=== PATIENT | male | born 1940 | race Caucasian/White ===

== ENCOUNTER 2024-09-05 12:44 | Inpatient (IN) | payer OTHER, MEDICAID ==
[~2024-09-05] VITALS: Ht 172.7 cm; Wt 70.5 kg
[~2024-09-05 12:44] MED LIST: FOLI-119 PO; FURO40TA4 PO; HYDR-4902 PO; IBUP1TAB4 PO; KETO2CRE4 TOP; LEVO50TA7 PO; LISI-275 PO; METH2.5T62 PO; POTA-211; POTA-228 PO; SIMV20TA20 PO
--- NOTE | 2024-09-05 13:09 | ED.PDOC ---
Flip. trauma (HPI) HPI Comments 83 y/o M, ROBBY, presents to the ED for CC of back pain. Patient states, he has been experiencing right lower back pain x1week. Patient reports, having a fall [id number] ago resulting in broken ribs on his left side. Patient denies recent fall, injury, or trauma. No other symptoms or modifying factors present at this time. Chief Complaint: Back Pain Time Seen by MD: 13:00 Reviewed notes: Nurses Notes, Sustainability Coordinator Notes, Medications, Allergies Allergies: Coded Allergies: NO KNOWN ALLERGIES (Unverified , 07/15/24) Home Meds Active Scripts Ibuprofen Micronized (Ibuprofen) 400 Mg Tab, 400 MG PO Q8HP PRN for 30 Days, #90 TAB Prov:ROSINA NGUYEN RESIDENT 07/17/24 Hydrocodone-Acetaminophen (Hydrocodone Bitartrate/AC 5-325 mg) 1 Tab Tab, 1 TAB PO Q6HPRN PRN for 5 Days, #20 TAB Prov:CHASITY CASEY MD 07/17/24 Reported Medications Methotrexate (Methotrexate Sodium) 2.5 Mg Tab, TAB PO QWEEKLY 07/15/24 Potassium Chloride (Klor-Con 10) 10 Meq Tab, 1 07/15/24 Folic Acid (Folic Acid) 1 Mg Tab, 1 TAB PO DAILY 07/15/24 Potassium Chloride (Potassium Chloride ER) 10 Meq Tab, 1 TAB PO BID 07/15/24 Simvastatin (Simvastatin) 20 Mg Tab, 1 TAB PO 07/15/24 Furosemide (Furosemide) 40 Mg Tab, 1 TAB PO DAILY 07/15/24 Levothyroxine Sodium (Levothyroxine Sodium) 50 Mcg Tab, 1 TAB PO DAILY 07/15/24 Lisinopril (Lisinopril) 5 Mg Tab, 1 TAB PO DAILY 07/15/24 Ketoconazole (Ketoconazole) 2 % Cre, 1 APPLIC TOP 07/15/24 Information Source: Patient Mode of Arrival: EMS Severity: Moderate Past Medical History PAST MEDICAL HISTORY: Denies Surgical History: Denies all surgeries Family History Family History: Unknown Social History Smoker: Non-Smoker Alcohol: Denies ETOH Use Drugs: Denies Drug Use Lives In: Home Constitutional: denies: chills, diaphoresis, fatigue, fever, malaise, sweats, weakness, others EENTM: denies: blurred vision, double vision, ear bleeding, ear discharge, ear drainage, ear pain, ear ringing, eye pain, eye redness, hearing loss, mouth pain, mouth swelling, nasal discharge, nose bleeding, nose congestion, nose pain, photophobia, tearing, throat pain, throat swelling, voice changes, others Respiratory: denies: cough, hemoptysis, orthopnea, SOB at rest, shortness of breath, SOB with excertion, stridor, wheezing, others Cardiovascular: denies: chest pain, dizzy spells, diaphoresis, Dyspnea on exertion, edema, irregular heart beat, left arm pain, lightheadedness, palpitations, PND, syncope, others Gastrointestinal: denies: abdomen distended, abdominal pain, blood streaked bowels, constipated, diarrhea, dysphagia, difficulty swallowing, hematemesis, me olamide, nausea, poor appetite, poor fluid intake, rectal bleeding, rectal pain, vomiting, others Genitourinary: denies: burning, dysuria, flank pain, frequency, hematuria, incontinence, penile discharge, penile sore, pain, testicle pain, testicle swelling, urgency, others Neurological: denies: dizziness, fainting, headache, left sided numbness, left sided weakness, numbness, paresthesia, pre-existing deficit, right sided numbness, right sided weakness, seizure, speech problems, tingling, tremors, weakness, others Musculoskeletal: reports: back pain; denies: gout, joint pain, joint swelling, muscle pain, muscle stiffness, neck pain, others Integumetry: denies: bruises, change in color, change in hair/nails, dryness, laceration, lesions, lumps, rash, wounds, others Allergic/Immunocompromised: denies: Difficulty Healing, Frequent Infections, Hives, Itching, others Hematologic/Lymphatic: denies: anemia, blood clots, easy bleeding, easy bruising, swollen glands, others Endocrine: denies: excessive hunger, excessive sweating, excessive thirst, excessive urination, flushing, intolerance to cold, intolerance to heat, unexplained weight gain, unexplained weight loss, others Psychiatric: denies: anxiety, bipolar disorder, depression, hopeless, panic disorder, schizophrenia, sleepless, suicidal, others All Other Systems: Reviewed and Negative Physical Exam General Appearance: No Apparent Distress, Normal HEENT: Normal ENT Inspection, Pharynx Normal Neck: Full Range of Motion, Non-Tender, Normal, Normal Inspection Respiratory: Chest Non-Tender, Lungs Clear, No Accessory Muscle Use, No Res piratory Distress, Normal Breath Sounds Cardiovascular: No Edema, No Murmur, No Gallop, Normal Peripheral Pulses, Regular Rate/Rhythm Breast Exam: Deferred Gastrointestinal: No Organomegaly, Non Tender, No Pulsatile Mass, Normal Bowel Sounds, Soft Genitalia: Deferred Pelvic: Deferred Rectal: Deferred Extremities: No calf tenderness, Normal capillary refill, Normal inspection, Normal range of motion, Non-tender, No pedal edema Musculoskeletal : Apperance: Normal Neurologic: Alert, cloth bin packer II-XII nml as Tested, No Motor Deficits, Normal Affect, Normal Mood, No Sensory Deficits Cerebellar Function: Normal Reflexes: Normal Skin: Dry, Normal Color, Warm Lymphatic: No Adenopathy Was a procedure done? Was a procedure done?: No Differential Diagnosis Multiple Trauma: Fractures, Spine Injury X-Ray, Labs, Meds, VS Vital Signs Date Time Temp Pulse Resp B/P (MAP) Pulse Ox O2 Delivery O2 Flow Rate FiO2 09/05/24 14:43 98.6 89 18 124/77 (93) 91 98.6 09/05/24 14:43 89 Room Air* 0 21 09/05/24 12:53 98.6 89 18 124/77 (93) 91 98.6 Lab Test 09/05/24 14:47 Range/Units White Blood Count 5.7 4.4-10.8 10^3/uL Red Blood Count 4.92 4.5-5.90 10^6/uL Hemoglobin 15.5 13.5-17.5 g/dL Hematocrit 46.0 41.0-53.0 % Mean Corpuscular Volume 93.5 80.0-100.0 fL Mean Corpuscular Hemoglobin 31.4 28.0-32.0 pg Mean Corpuscular Hemoglobin Concent 33.6 32.0-36.0 g/dL Red Cell Distribution Width 17.1 H 11.8-14.3 % Platelet Count 221 140-450 10^3/uL Mean Platelet Volume 6.6 L 6.9-10.8 fL Neutrophils (%) (Auto) 77.2 37.0-80.0 % Lymphocytes (%) (Auto) 11.7 10.0-50.0 % Monocytes (%) (Auto) 9.6 0.0-12.0 % Eosinophils (%) (Auto) 0.8 0.0-7.0 % Basophils (%) (Auto) 0.7 0.0-2.0 % Neutrophils # (Auto) 4.4 1.6-8.6 10 ^3/uL Lymphocytes # (Auto) 0.7 0.4-5.4 10 ^3/uL Monocytes # (Auto) 0.5 0-1.3 10 ^3/uL Eosinophils # (Auto) 0 0-0.8 10 ^3/uL Basophils # (Auto) 0 0-0.2 10 ^3/uL Nucleated Red Blood Cells 0.1 % Sodium Level 140 136-145 mmol/L Potassium Level 4.7 3.5-5.1 mmol/L Chloride Level 102 98-107 mmol/L Carbon Dioxide Level 31 20-31 mmol/L Anion Gap 7 5-15 Blood Urea Nitrogen 18 9-23 mg/dL Creatinine 1.16 0.700-1.30 mg/dL Glomerular Filtration Rate Calc 62 >90 mL/min BUN/Creatinine Ratio 15.5 10.0-20.0 Serum Glucose 87 74-106 mg/dL Calcium Level 9.6 8.7-10.4 mg/dL Troponin I High Sensitivity 9 </=54 ng/L Current Medications Medications (Trade) Dose Ordered Sig/Elvia Route Start Time Stop Time Status Last Admin Acetaminophen/ Hydrocodone Bitart ([place] 5/325MG Tab) 1 tab ONCE ONCE PO 09/05/24 14:45 09/05/24 14:46 DC 09/05/24 14:46 [place] [id number] Ph: [phone] DIAGNOSTIC IMAGING Diagnostic Imaging Report : [id number] Signed PATIENT: CHRISTIANO HERNANDEZ ACCT: [id number] UNIT: [id number] : 1940 LOC: ER ROOM / BED: / AGE / SEX: 83 / M ADM STATUS: REG ER SERVICE [id number] ORDERING PHYSICIAN: NATALIA ARIZA MD PROCEDURE(s): CXR2 - CHEST TWO VIEWS ROUTINE REASON: chest wall and back pain ORDER NUMBER(s): [id number], ACCESSION NUMBER(s): [id number] CHEST RADIOGRAPH Indication: chest wall and back pain Technique: Frontal and lateral view of the chest was obtained Comparison: None FINDINGS: Lines and Tubes: None Lungs: Clear Pleura: No effusion. No pneumothorax. Cardiomediastinal contours: Cardiomegaly. Moderate to large hiatal hernia. Bones: Unremarkable IMPRESSION: Cardiomegaly and moderate to large hiatal hernia. ATED BY: JIN ALEXANDER MD DICTATED DATE/TIME: 09/05/241342 SIGNED BY: JIN ALEXANDER MD SIGNED DATE/TIME: 09/05/241342 CC: Time of 1ST Reevaluation: 13:30 Reevaluation 1ST: Unchanged Patient Education/Counseling: Diagnosis, Treatment Family Education/Counseling: No Family Present Departure 1 Departure Time of Disposition: 15:39 (When discussed with the patient about his back pain patent shunt then described that he is now having left-sided chest pain 5/10 radiates into his back it is not exertional in nature.Patient presented with chest pain that was concerning for possible STEMI, ACS, PE, Pneumonia, Muscle Strain, COPD, Dissection. Data: 1. I ordered and reviewed the result of at least 3 labs including a CBC, BMP, and Troponin. 2. I independently interpreted the following tests: EKG which shows sinus arrhythmia and Chest X-ray which shows benign chest.Risk:This patient has a high risk of morbidity due to further diagnostic testing or treatment and may suffer from an acute cardiac or respiratory disorder. Workup reveals concern for ACS and patient should be admitted for further workup and possible expert consultation. ) Impression: Primary Impression: Acute chest pain Additional Impression: Thoracic back pain Qualified Codes: M54.6 - Pain in thoracic spine Disposition: ADMITTED INPATIENT Admit to: Med Surg Condition: Serious Critical Care Note Critical Care Time?: Yes Critical care comment: Acute chest pain Authorized and Performed by: Natalia Ariza MD Total critical care time: Approximately 34 minutes Due to a high probability of clinically significant, life threatening deterioration, the patient required my highest level of preparedness to intervene emergently and I personally spent this critical care time directly and personally managing the patient. This critical care time included obtaining a history; examining the patient; pulse oximetry; ordering and review of studies; arranging urgent treatment with development of a management plan; evaluation of patient's response to treatment; frequent reassessment; and, discussions with other providers. This critical care time was performed to assess and manage the high probability of imminent, life-threatening deterioration that could result in multi-organ failure. It was exclusive of separately billable procedures and treating other patients and teaching time. Please see my other sections and the rest of the note for further information on patient assessment and treatment. Stability Stability form required: No Heart Score Heart Score: Heart Score Response (Comments) Value History N/A 0 EKG N/A 0 Age N/A 0 Risk Factors N/A 0 Troponin N/A 0 Total 0 I personally scribed for NATALIA ARIZA MD ([email or web address]) on 09/05/24 at 13:09. Electronically submitted by Radha Alas ([email or web address]). I personally scribed for NATALIA ARIZA MD ([email or web address]) on 09/05/24 at 13:19. Electronically submitted by Radha Alas ([email or web address]). I personally scribed for NATALIA ARIZA MD ([email or web address]) on 09/05/24 at 14:20. Electronically submitted by Radha Alas ([email or web address]). NATALIA ARIZA MD Sep 05, 2024 13:09
[2024-09-05] MEDS: ACETAMINOPHEN 325 MG TAB PO ONE (13:30)
--- NOTE | 2024-09-05 13:45 | DVH ---
CHEST RADIOGRAPH Indication: chest wall and back pain Technique: Frontal and lateral view of the chest was obtained Comparison: None FINDINGS: Lines and Tubes: None Lungs: Clear Pleura: No effusion. No pneumothorax. Cardiomediastinal contours: Cardiomegaly. Moderate to large hiatal hernia. Bones: Unremarkable IMPRESSION: Cardiomegaly and moderate to large hiatal hernia.
[2024-09-05 14:43] VITALS: PULSE 89
[2024-09-05] MEDS: HYDROcodone-ACET 5/325MG TAB PO ONE (14:46)
[2024-09-05 14:59] LABS: Basophils # (auto) 0 10 ^3/uL (0-0.2); Basophils % (auto) 0.7 % (0.0-2.0); Eosinophils # (auto) 0 10 ^3/uL (0-0.8); Eosinophils % (auto) 0.8 % (0.0-7.0); Hemoglobin 15.5 g/dL (13.5-17.5); Lymphocytes # (auto) 0.7 10 ^3/uL (0.4-5.4); Lymphocytes % (auto) 11.7 % (10.0-50.0); Mean Corpuscular Hemoglobin 31.4 pg (28.0-32.0); Mean Corpuscular Hgb Conc. 33.6 g/dL (32.0-36.0); Mean Corpuscular Volume 93.5 fL (80.0-100.0); Monocytes # (auto) 0.5 10 ^3/uL (0-1.3); Monocytes % (auto) 9.6 % (0.0-12.0); Neutrophils # (auto) 4.4 10 ^3/uL (1.6-8.6); Neutrophils % (auto) 77.2 % (37.0-80.0); Nucleated Red Blood Cells % 0.1 %; Platelet Count (auto) 221 10^3/uL (140-450); Red Blood Cells 4.92 10^6/uL (4.5-5.90); Red Cell Distribution Width 17.1 % (11.8-14.3); White Blood Cell 5.7 10^3/uL (4.4-10.8)
[2024-09-05 15:06] LABS: Chloride 102 mmol/L (98-107); Potassium 4.7 mmol/L (3.5-5.1); Sodium 140 mmol/L (136-145)
[2024-09-05 15:07] LABS: Anion Gap 7 (5-15); Calcium 9.6 mg/dL (8.7-10.4)
[2024-09-05 15:12] LABS: BUN/Creatinine Ratio 15.5 (10.0-20.0); Blood Urea Nitrogen 18 mg/dL (9-23); Glucose 87 mg/dL (74-106)
[2024-09-05 15:15] LABS: Carbon Dioxide 31 mmol/L (20-31)
[2024-09-05 20:59] LABS: Triglycerides 108 mg/dL (< 150)
[2024-09-05 21:00] LABS: LDL Cholesterol 118 mg/dL (< 100)
[2024-09-05 21:01] LABS: Cholesterol 185 mg/dL (< 200); HDL Cholesterol 55 mg/dL (40-59)
--- NOTE | 2024-09-05 21:14 | DVHHPRES ---
History of Present Illness Resident Creating Document: FOREST BARONE History of Present Illness This is a 83-year-old male with past medical history of hypertension, prediabetes, dyslipidemia, hypothyroidism who presented to the ED with chief complaint of right lower back pain. The patient states that the pain started one week ago, started gradually but worsened day by day. The patient states that occasionally the pain radiates toward the right upper quadrant and right- sided chest. The patient described the pain as a sharp/stabbing pain localized in the right lower back just above the right hip rated as 8/10 on the pain scale. The patient denies any radiation to the lower extremities. The patient also reports that the pain gets worse with standing up from the sitting position. The patient denies fever/chills, chest pain, shortness of breath or any other additional symptoms. Upon admission, CBC and BNP were grossly unremarkable, troponins were negative and chest x-ray showed moderate to large hiatal hernia. Upon my examination, the patient reports not being able to walk as he usually do so due to the pain and is currently using a wheelchair. We will order a CT scan of the lumbar spine and we will admit the patient for further assessment and management. Past medical history: Hypertension, prediabetes, dyslipidemia, hypothyroidism Home medications: Alendronate 70 mg one tablet weekly, lisinopril 5 mg daily, methotrexate 2.5 mg seven pills every , furosemide 40 mg daily, levothyroxine 50 mcg daily, simvastatin 20 mg daily, folic acid 1 mg daily, pota ssium 10 mEq b.i.d., terbinafine 250 mg daily. Surgical history: Denies Social history: Denies alcohol, drugs or smoking Cardiovascular: HTN, hyperipidemia Musculoskeletal: Osteoarthritis Endocrine: Hypothyroidism, Other (Prediabetes) Past Surgical History: None Family History: None Smoke: No ALCOHOL: none Drugs: None Lives: with Family Domestic Violence: Neg Review of Systems Constitutional: No: Fever, Chills, Sweats, Weakness, Malaise, Other Eyes: No: Pain, Vision change, Conjunctivae inflammation, Eyelid inflammation, Other, Redness ENT: No: Ear pain, Ear discharge, Nose pain, Nose discharge, Nose congestion, Mouth pain, Mouth swelling, Throat pain, Throat swelling, Other Respiratory: No: Cough, Dry, Shortness of breath, SOB with excertion, Wheezing, Hemoptysis, Pleuritic Pain, Sputum, Wheezing, Other Cardiovascular: No: Chest Pain, Palpitations, Orthopnea, Paroxysmal Noc. Dyspnea, Edema, Lt Headedness, Other Gastrointestinal: No: Nausea, Vomiting, Abdominal Pain, Diarrhea, Constipation, Melena, Hematochezia, Other Genitourinary: No Dysuria, No Frequency, No Incontinence, No Hematuria, No Retention, No Other Musculoskeletal: back pain; No: other, neck pain, shoulder pain, arm pain, hand pain, leg pain, foot pain Skin: No: Rash, Lesions, Jaundice, Bruising, Other Neurological: Other (Inability to walk due to severe right-sided lower back pain); No: Weakness, Numbness, Incoordination, Change in speech, Confusion, Seizures Allergies: Coded Allergies: NO KNOWN ALLERGIES (Unverified , 07/15/24) Exam Vital Signs Vital Signs Date Time Temp Pulse Resp B/P (MAP) Pulse Ox O2 Delivery O2 Flow Rate FiO2 09/05/24 19:44 98.2 80 18 158/94 (115) 90 98.2 09/05/24 14:43 Room Air* 0 21 General Appearance: Alert, Oriented X3, Cooperative, mild distress HEENT: Atraumatic, PERRLA, EOMI, Mucous membr. moist/pink Respiratory: Clear to auscultation, Normal air movement Cardiovascular: Regular rate, Normal S1, Normal S2, No murmurs Abdominal: Normal bowel sounds, Soft, No tenderness, No hepatospenomegaly, No masses Extremities: No clubbing, No cyanosis, No edema, Normal pulses, No tenderness/swelling Skin: No rashes, No breakdown, No significant lesion Neuro: Normal speech, Strength at 5/5 X4 ext, Normal tone, Sensation intact, Cranial nerves 3-12 NL, Reflexes 2+, Other (Patient currently walking with a lot of difficulty due to severe right-sided lower back pain.) Psych/Mental Status: Mental status NL, Mood NL Labs/Xrays Labs Test 09/05/24 18:26 09/05/24 14:47 Range/Units Troponin I High Sensitivity 10 </=54 ng/L White Blood Count 5.7 4.4-10.8 10^3/uL Red Blood Count 4.92 4.5-5.90 10^6/uL Hemoglobin 15.5 13.5-17.5 g/dL Hematocrit 46.0 41.0-53.0 % Mean Corpuscular Volume 93.5 80.0-100.0 fL Mean Corpuscular Hemoglobin 31.4 28.0-32.0 pg Mean Corpuscular Hemoglobin Concent 33.6 32.0-36.0 g/dL Red Cell Distribution Width 17.1 H 11.8-14.3 % Platelet Count 221 140-450 10^3/uL Mean Platelet Volume 6.6 L 6.9-10.8 fL Neutrophils (%) (Auto) 77.2 37.0-80.0 % Lymphocytes (%) (Auto) 11.7 10.0-50.0 % Monocytes (%) (Auto) 9.6 0.0-12.0 % Eosinophils (%) (Auto) 0.8 0.0-7.0 % Basophils (%) (Auto) 0.7 0.0-2.0 % Neutrophils # (Auto) 4.4 1.6-8.6 10 ^3/uL Lymphocytes # (Auto) 0.7 0.4-5.4 10 ^3/uL Monocytes # (Auto) 0.5 0-1.3 10 ^3/uL Eosinophils # (Auto) 0 0-0.8 10 ^3/uL Basophils # (Auto) 0 0-0.2 10 ^3/uL Nucleated Red Blood Cells 0.1 % Sodium Level 140 136-145 mmol/L Potassium Level 4.7 3.5-5.1 mmol/L Chloride Level 102 98-107 mmol/L Carbon Dioxide Level 31 20-31 mmol/L Anion Gap 7 5-15 Blood Urea Nitrogen 18 9-23 mg/dL Creatinine 1.16 0.700-1.30 mg/dL Glomerular Filtration Rate Calc 62 >90 mL/min BUN/Creatinine Ratio 15.5 10.0-20.0 Serum Glucose 87 74-106 mg/dL Calcium Level 9.6 8.7-10.4 mg/dL Assessment/Plan Assessment/Plan Assessment/plan Acute right-sided lower back pain, R/O radiculopathy. likely Musculoskeletal R/O Herniated disk R/O Vertebral compression fractures -straight leg raise test negative -chest x-ray grossly unremarkable regarding lung parenchyma, there is a moderate hiatal hernia -Order CT lumbar spine to r/o vertebral fractures or herniated disk (unlikely) -Start IV fluids NS 0.9% at 60cc/hr -Start cyclobenzaprine 10mg daily -Gave ketorolac and acetaminophen for lower back pain Hypothyroidism -order TSH and free T4 -Resume levothyroxine 50 mcg daily Primary hypertension -Start lisinopril 5 mg daily -Monitor BP Prediabetes -Ordered HbA1c -Monitor BG Dyslipidemia -Ordered lipid panel -Start atorvastatin 20mg daily Hx of osteopenia/osteoporosis -Alendronate 70mg 1 tab weekly Goals of care discussed with the patient at bedside for >35min, FULL CODE Plan discussed with Dr. Pritchett Plan discussed with: Patient My Orders Orders - FOREST BARONE Procedure Category Date Status Time Admit ADMIT 09/05/24 Transmitted 20:31 Code Status CODE 09/05/24 Transmitted 20:31 Vital Signs [facility] 09/05/24 In Process 20:31 Review Orders With ARI 09/05/24 In Process Adm. 20:31 Encourage Activity As ARI 09/05/24 In Process Tolerate 20:31 Regular Diet DIET 09/06/24 Transmitted Breakfast Sodium Chloride 0.9% PHA 09/05/24 Logged 20:45 Acetaminophen Tablet PHA 09/05/24 Logged (Tylenol Tablet) 20:45 Notify Of Changes [facility] 09/05/24 In Process From Base 20:31 Advance Directive [facility] 09/05/24 In Process 20:31 Urinalysis LAB 09/05/24 Logged 20:31 Lipid Panel LAB 09/05/24 Logged 20:31 Patient Condition ORDERS 09/05/24 Transmitted 20:31 Allergies [facility] 09/05/24 In Process 20:31 Hydrocodone-Acet PHA 09/05/24 Logged 5/325mg Tab ([place] 20:45 Drug Screen LAB 09/05/24 Logged 20:31 Hemoglobin A1c LAB 09/05/24 Logged 20:31 Enoxaparin Sodium PHA 09/06/24 Logged (Lovenox) 10:00 Comprehensive LAB 09/06/24 Verified Metabolic Panel 04:00 Ls Spine Wo Contrast CT 09/05/24 Logged 20:37 Cyclobenzaprine PHA 09/05/24 Verified Tablet (Flexeril 20:45 Ketorolac Injection PHA 09/05/24 Verified (Toradol Injection) 20:45 Acetaminophen Tablet PHA 09/05/24 Verified (Tylenol Tablet) 20:45 Date of Service: Sep 05, 2024 Billing Provider: SAMY PRITCHETT MD Common Visit Codes: 90504-IWZGPRG INP/OBS CARE (HIGH) Secondary Visit Codes: 69215-GYQPVGMF CARE PLAN 30 MINUTES JAMEEL BrownFOREST RESIDENT Sep 05, 2024 21:14
--- NOTE | 2024-09-05 22:20 | DVH ---
CT LS SPINE WO CONTRAST Indication: R/O Herniated disk or vertebral fracture EXAM DATE: 09/05/2024 08:44 PM COMPARISON: None TECHNIQUE: CT of the lumbar spine without intravenous contrast. RADIATION DOSE: CTDIvol: 22.53 mGy, DLP: 682.16 mGy*cm FINDINGS: The lumbar vertebral body heights are maintained. Severe multilevel disc space narrowing. 2 mm retro listhesis of L2 upon L3.2 mm retrolisthesis of L1 upon L2. Moderate to severe lumbar facet hypertroph ic changes. Transitional L6 vertebral body. Old sacral fracture deformity at approximately S3. Lumba r dextrocurvature. Moderate to severe neural foraminal stenosis L5-S1. Moderate to severe neural foraminal stenosis L2-3 . Moderate neural foraminal stenosis of the remaining lumbar levels. Moderate bilateral sacroiliac degenerative joint disease. Aneurysmal dilatation of the infrarenal abdominal aorta to 4.2 3.8 cm. Aneurysmal dilatation of the p roximal abdominal aorta to 3.5 x 3.0 cm. IMPRESSION: 1. Severe multilevel disc degenerative disc disease, L1-L3 retrolisthesis, facet hypertrophy, L6 reaves sitional vertebra 2. Multilevel neural foraminal stenosis most pronounced at L2-3, L5-S1. 3. Abdominal aortic aneurysm ( 4.2 x 3.8 cm infrarenal, 3.5 x 3.0 cm proximal ) .
[2024-09-05 22:35] LABS: Erythrocyte Sedimentation Rate 9 mm/hr (0-20)
[2024-09-06] VITALS (8 sets, daily range): BP systolic 99–141; BP diastolic 59–90; PULSE 61–89; RESP 12–19; TEMP 97.2–98.4; O2SAT 71–91
[2024-09-06] MEDS: SODIUM CHLORIDE 0.9% 1,000 ML IV SCH (00:45)
[2024-09-06] MEDS: KETOROLAC TROMETH 30 MG/ML 1ML VIAL IV ONE (00:45)
[2024-09-06] MEDS: CYCLOBENZAPRINE HCL 10 MG TAB PO ONE (00:45)
[2024-09-06] MEDS: ACETAMINOPHEN 325 MG TAB PO ONE (00:45)
[2024-09-06] MEDS ORDERED: ACETAMINOPHEN 325 MG TAB PO PRN (02:45)
[2024-09-06] MEDS: HYDROcodone-ACET 5/325MG TAB PO PRN (03:17)
[2024-09-06 03:54] LABS: COVID19 ANTIGEN SOFIA FIA NEGATIVE (NEGATIVE); Rapid Influenza A Negative (Negative); Rapid Influenza B Negative (Negative)
[2024-09-06] MEDS ORDERED: ALEN70TA74 PO (05:50)
[2024-09-06] MEDS ORDERED: TERB250T92 PO (05:51)
[2024-09-06] MEDS: LEVOTHYROXINE SODIUM 50 MCG TAB PO SCH (05:52)
[2024-09-06 07:12] LABS: Alanine Aminotransferase 17 U/L (7-40); Albumin 4.3 g/dL (3.2-4.8); Alkaline Phosphatase 59 U/L (46-116); Anion Gap 7 (5-15); Aspartate Aminotransferase 20 U/L (13-40); BUN/Creatinine Ratio 18.1 (10.0-20.0); Blood Urea Nitrogen 19 mg/dL (9-23); Calcium 9.6 mg/dL (8.7-10.4); Carbon Dioxide 30 mmol/L (20-31); Chloride 101 mmol/L (98-107); Glucose 89 mg/dL (74-106); Sodium 138 mmol/L (136-145); Total Protein 6.7 g/dL (5.7-8.2)
[2024-09-06 07:13] LABS: Bilirubin, Total 0.5 mg/dL (0.2-1.0)
[2024-09-06] MEDS: LISINOPRIL 5 MG TAB PO SCH (08:50)
[2024-09-06] MEDS: ENOXAPARIN SOD 40 MG/0.4 ML SYRINGE SC SCH (10:46)
[2024-09-06] MEDS: LORazepam 2MG/ML-1ML VIAL IV ONE (11:10)
[2024-09-06] MEDS ORDERED: LORazepam 2MG/ML-1ML VIAL IV PRN (14:15)
[2024-09-06] MEDS: LORazepam 2MG/ML-1ML VIAL IV PRN (15:40)
--- NOTE | 2024-09-06 15:43 | DVHPNRES ---
Progress Note Date Seen: Sep 06, 2024 Resident Creating Document: SELENA MENSAH RESIDENT Has the PT tested + for MRSA If YES, has PT been informed?: No Medical Necessity Reason Pt with a Central, PICC or Fol: No Subjective Review of Systems This is a 83-year-old male with past medical history of rheumatoid arthritis, hypertension, prediabetes, dyslipidemia, hypothyroidism who presented to the ED with chief complaint of right lower back pain. The patient states that the pain started one week ago, started gradually but worsened day by day. The patient states that occasionally the pain radiates toward the right upper quadrant and right-sided chest. The patient described the pain as a sharp/stabbing pain localized in the right lower back just above the right hip rated as 8/10 on the pain scale. The patient denies any radiation to the lower extremities. The patient also reports that the pain gets worse with standing up from the sitting position. The patient denies fever/chills, chest pain, shortness of breath or any other additional symptoms. Upon admission, CBC and BNP were grossly unremarkable, troponins were negative and chest x-ray showed moderate to large hiatal hernia. Upon my examination, the patient reports not being able to walk as he usually do so due to the pain and is currently using a wheelchair. We will order a CT scan of the lumbar spine and we will admit the patient for further assessment and management. Past medical history: rheumatoid arthritis, Hypertension, prediabetes, dyslipidemia, hypothyroidism Home medications: Alendronate 70 mg one tablet weekly, lisinopril 5 mg daily, methotrexate 2.5 mg seven pills every , furosemide 40 mg daily, levothyroxine 50 mcg daily, simvastatin 20 mg daily, folic acid 1 mg daily, potassium 10 mEq b.i.d., terbinafine 250 mg daily. Surgical history: Denies Social history: Denies alcohol, drugs or smoking Cardiovascular: HTN, hyperipidemia Musculoskeletal: Osteoarthritis Endocrine: Hypothyroidism, Other (Prediabetes) Past Surgical History: None Family History: None Smoke: No ALCOHOL: none Drugs: None Lives: with Family Domestic Violence: Neg 09/06/2024: CT scan showed: Severe multilevel disc degenerative disc disease, L1- L3 retrolisthesis, facet hypertrophy, L6 transitional vertebra, Multilevel neural foraminal stenosis most pronounced at L2-3, L5-S1. Abdominal aortic aneurysm, pain is exquisite paravertebral, no fever, no leukocytosis, lorazepam, flexeril, ibuprofen and norco given for pain. Objective vital signs Vital Sign Date Time Temp Pulse Resp B/P (MAP) Pulse Ox O2 Delivery O2 Flow Rate FiO2 09/06/24 09:00 97.6 89 19 138/90 (106) 90 97.6 09/06/24 08:00 Room Air* 0 21 Total Intake and Output 09/05/24 09/05/24 09/06/24 15:00 23:00 07:00 Intake Total 0 ml Balance 0 ml medications Current Medications Medications Dose Ordered Sig/Elvia Route Start Time Stop Time Status Last Admin Dose Admin Sodium Chloride 1,000 ml @ 60 mls/hr [id number] IV 09/05/24 20:45 09/06/24 09:13 60 MLS/HR Acetaminophen 650 mg Q6HP PRN PO 09/06/24 02:45 Acetaminophen/ Hydrocodone Bitart 1 tab Q4HP PRN PO 09/05/24 20:45 09/06/24 08:54 1 TAB Enoxaparin Sodium 40 mg DAILY SC 09/06/24 10:00 09/06/24 10:46 40 MG Levothyroxine Sodium 50 mcg DAILY@0600 PO 09/06/24 06:00 09/06/24 05:52 50 MCG Lisinopril 5 mg DAILY@0800 PO 09/06/24 08:00 09/06/24 08:50 5 MG Atorvastatin Calcium 20 mg HS PO 09/06/24 22:00 Methotrexate 17.5 mg QWEEKLY PO 09/07/24 12:00 Patient Own Medication 1 QWEEKLY PO 09/05/24 21:15 Lorazepam 0.5 mg Q6HP PRN IV 09/06/24 14:30 UNV Examination General Appearance: Alert, Oriented X3, Cooperative, mild distress HEENT: Atraumatic, PERRLA, EOMI, Mucous membr. moist/pink Respiratory: Clear to auscultation, Normal air movement Cardiovascular: Regular rate, Normal S1, Normal S2, No murmurs Abdominal: Normal bowel sounds, Soft, No tenderness, No hepatospenomegaly, No masses Extremities: No clubbing, No cyanosis, No edema, Normal pulses, No tenderness/swelling Skin: No rashes, No breakdown, No significant lesion Neuro: Normal speech, Strength at 5/5 X4 ext, Normal tone, Sensation intact, Cranial nerves 3-12 NL, Reflexes 2+, Other (Patient currently walking with a lot of difficulty due to severe right-sided lower back pain.) Psych/Mental Status: Mental status NL, Mood NL laboratory and microbiology Laboratory Tests 09/06/24 06:33 09/05/24 14:47 Test 09/06/24 06:33 Range/Units Serum Glucose 89 74-106 mg/dL Problem List/Assessment/Plan Problem List/Assessment/Plan #Acute right-sided lower back pain due to radiculopathy and musculoskeletal #Severe multilevel disc degenerative disc disease, L1-L3 retrolisthesis, facet hypertrophy, L6 transitional vertebra #Multilevel neural foraminal stenosis most pronounced at L2-3, L5-S1. #Rheumatoid arthritis -straight leg raise test negative -chest x-ray grossly unremarkable regarding lung parenchyma, there is a moderate hiatal hernia -CT lumbar done Ativan PO given Continue cyclobenzaprine 10mg daily Start ibuprofen CRP pending #Hypothyroidism -TSH and free T4: normal -Resume levothyroxine 50 mcg daily #Primary hypertension -Continue lisinopril 5 mg daily -Monitor BP #Prediabetes - HbA1c 5.7 -Monitor BG #Dyslipidemia -Ordered lipid panel -Start atorvastatin 20mg daily #Hx of osteopenia/osteoporosis -Alendronate 70mg 1 tab weekly #Abdominal aortic aneurysm: 4.2 x 3.8 cm infrarenal, 3.5 x 3.0 cm proximal fu outpatient Goals of care discussed with the patient at bedside for >35min, FULL CODE Plan discussed with Dr. Casey Plan discussed with: Patient, Other My Orders My Orders Orders - SELENA MENSAH RESIDENT Procedure Category Date Status Time Lorazepam 2mg/Ml Inj PHA 09/06/24 Logged (Ativan Inj) 14:30 Lorazepam Tablet PHA 09/06/24 Transmitted (Ativan Tablet) 15:45 Date of Service: Sep 06, 2024 Billing Provider: CHASITY CASEY MD Common Visit Codes: [id number] INP/OBS CARE(HIGH) SELENA MENSAH RESIDENT Sep 06, 2024 15:43 CHASITY CASEY MD Sep 07, 2024 11:53
[2024-09-06] MEDS: LORazepam 0.5 MG TAB PO ONE (16:04)
[2024-09-06] MEDS: FOLIC ACID 1 MG TAB PO SCH (16:33)
[2024-09-06] MEDS: ATORVASTATIN 20 MG TAB PO SCH (21:05)
[2024-09-06] MEDS: IBUPROFEN 400 MG TAB PO PRN (21:05)
[2024-09-06 22:08] LABS: Urine Bacteria None Seen /hpf (None Seen)
[2024-09-06 22:38] LABS: Cannabinoid Screen, Urine Pos (NEGATIVE); Opiate Scree,Urine Neg (NEGATIVE)
[2024-09-06 22:46] LABS: Amphetamine Screen, Urine Neg (NEGATIVE); Barbiturate Scree,Urine Neg (NEGATIVE); Benzodiazephine Screen, Urine Neg (NEGATIVE); Cocaine Screen, Urine Neg (NEGATIVE); Phencyclidine Screen, Urine Neg (NEGATIVE)
[2024-09-06 22:57] LABS: Urine Blood Negative /uL (Negative); Urine Clarity Clear (Clear); Urine Color Yellow (Yellow); Urine Hyaline Cast FEW /lpf (0 - 2); Urine Protein, UAD Negative (Negative); Urine Specific Gravity 1.016 (1.001-1.035); Urine Squamous Epithelial Cell None Seen /hpf (<5); Urine Urobilinogen Normal (Negative); Urine WBC 1 /HPF (0-3); Urine pH 5.5 (5.0-9.0)
[2024-09-07] VITALS (8 sets, daily range): BP systolic 102–149; BP diastolic 51–83; PULSE 52–70; RESP 12–18; TEMP 97.3–98.8; O2SAT 90–95
[2024-09-07 05:29] LABS: Basophils # (auto) 0 10 ^3/uL (0-0.2); Chloride 103 mmol/L (98-107); Eosinophils # (auto) 0.1 10 ^3/uL (0-0.8); Eosinophils % (auto) 3.3 % (0.0-7.0); Hematocrit 38.5 % (41.0-53.0); Hemoglobin 12.9 g/dL (13.5-17.5); Lymphocytes # (auto) 0.9 10 ^3/uL (0.4-5.4); Lymphocytes % (auto) 20.9 % (10.0-50.0); Mean Corpuscular Hemoglobin 31.3 pg (28.0-32.0); Mean Corpuscular Hgb Conc. 33.4 g/dL (32.0-36.0); Mean Corpuscular Volume 93.7 fL (80.0-100.0); Monocytes # (auto) 0.6 10 ^3/uL (0-1.3); Monocytes % (auto) 14.7 % (0.0-12.0); Neutrophils # (auto) 2.5 10 ^3/uL (1.6-8.6); Neutrophils % (auto) 60.1 % (37.0-80.0); Nucleated Red Blood Cells % 0.1 %; Platelet Count (auto) 180 10^3/uL (140-450); Potassium 4.3 mmol/L (3.5-5.1); Red Blood Cells 4.11 10^6/uL (4.5-5.90); Red Cell Distribution Width 17.3 % (11.8-14.3); Sodium 136 mmol/L (136-145); White Blood Cell 4.2 10^3/uL (4.4-10.8)
[2024-09-07 05:30] LABS: Anion Gap 5 (5-15); Carbon Dioxide 28 mmol/L (20-31)
[2024-09-07 05:35] LABS: BUN/Creatinine Ratio 21.7 (10.0-20.0); Blood Urea Nitrogen 18 mg/dL (9-23); Glucose 83 mg/dL (74-106)
[2024-09-07 05:52] LABS: Calcium 8.3 mg/dL (8.7-10.4)
[2024-09-07] MEDS: KETOROLAC TROMETH 30 MG/ML 1ML VIAL IV PRN (12:15)
[2024-09-07] MEDS: METHOTREXATE 2.5 MG TAB PO SCH (12:49)
--- NOTE | 2024-09-07 17:51 | DVHPNRES ---
Progress Note Date Seen: Sep 07, 2024 Resident Creating Document: SELENA MENSAH RESIDENT Has the PT tested + for MRSA If YES, has PT been informed?: No Medical Necessity Reason Pt with a Central, PICC or Fol: No Subjective Review of Systems This is a 83-year-old male with past medical history of rheumatoid arthritis, hypertension, prediabetes, dyslipidemia, hypothyroidism who presented to the ED with chief complaint of right lower back pain. The patient states that the pain started one week ago, started gradually but worsened day by day. The patient states that occasionally the pain radiates toward the right upper quadrant and right-sided chest. The patient described the pain as a sharp/stabbing pain localized in the right lower back just above the right hip rated as 8/10 on the pain scale. The patient denies any radiation to the lower extremities. The patient also reports that the pain gets worse with standing up from the sitting position. The patient denies fever/chills, chest pain, shortness of breath or any other additional symptoms. Upon admission, CBC and BNP were grossly unremarkable, troponins were negative and chest x-ray showed moderate to large hiatal hernia. Upon my examination, the patient reports not being able to walk as he usually do so due to the pain and is currently using a wheelchair. We will order a CT scan of the lumbar spine and we will admit the patient for further assessment and management. Past medical history: rheumatoid arthritis, Hypertension, prediabetes, dyslipidemia, hypothyroidism Home medications: Alendronate 70 mg one tablet weekly, lisinopril 5 mg daily, methotrexate 2.5 mg seven pills every , furosemide 40 mg daily, levothyroxine 50 mcg daily, simvastatin 20 mg daily, folic acid 1 mg daily, potassium 10 mEq b.i.d., terbinafine 250 mg daily. Surgical history: Denies Social history: Denies alcohol, drugs or smoking Cardiovascular: HTN, hyperipidemia Musculoskeletal: Osteoarthritis Endocrine: Hypothyroidism, Other (Prediabetes) Past Surgical History: None Family History: None Smoke: No ALCOHOL: none Drugs: None Lives: with Family Domestic Violence: Neg 09/06/2024: CT scan showed: Severe multilevel disc degenerative disc disease, L1- L3 retrolisthesis, facet hypertrophy, L6 transitional vertebra, Multilevel neural foraminal stenosis most pronounced at L2-3, L5-S1. Abdominal aortic aneurysm, pain is exquisite paravertebral, no fever, no leukocytosis, lorazepam, flexeril, ibuprofen and norco given for pain. 09/07/2024: patient still uncontrolled, ketorolac added to the regimen Objective vital signs Vital Sign Date Time Temp Pulse Resp B/P (MAP) Pulse Ox O2 Delivery O2 Flow Rate FiO2 09/07/24 17:00 98.8 62 16 105/51 (69) 90 98.8 09/07/24 08:00 Room Air* 0 21 Total Intake and Output 09/06/24 09/06/24 09/07/24 15:00 23:00 07:00 Intake Total 500 ml 100 ml Output Total 350 ml 150 ml Balance 150 ml -50 ml medications Current Medications Medications Dose Ordered Sig/Elvia Route Start Time Stop Time Status Last Admin Dose Admin Acetaminophen 650 mg Q6HP PRN PO 09/06/24 02:45 Enoxaparin Sodium 40 mg DAILY SC 09/06/24 10:00 09/07/24 10:07 40 MG Levothyroxine Sodium 50 mcg DAILY@0600 PO 09/06/24 06:00 09/07/24 05:31 50 MCG Lisinopril 5 mg DAILY@0800 PO 09/06/24 08:00 09/07/24 08:22 5 MG Atorvastatin Calcium 20 mg HS PO 09/06/24 22:00 09/06/24 21:05 20 MG Methotrexate 17.5 mg QWEEKLY PO 09/07/24 12:00 09/07/24 12:49 17.5 MG Patient Own Medication 1 QWEEKLY PO 09/05/24 21:15 Folic Acid 1 mg DAILY PO 09/06/24 16:03 09/07/24 10:07 1 MG Ketorolac Tromethamine 15 mg Q6HPRN PRN IV 09/07/24 12:00 09/12/24 11:59 09/07/24 12:15 15 MG Examination General Appearance: Alert, Oriented X3, Cooperative, mild distress HEENT: Atraumatic, PERRLA, EOMI, Mucous membr. moist/pink Respiratory: Clear to auscultation, Normal air movement Cardiovascular: Regular rate, Normal S1, Normal S2, No murmurs Abdominal: Normal bowel sounds, Soft, No tenderness, No hepatospenomegaly, No masses Extremities: No clubbing, No cyanosis, No edema, Normal pulses, No tenderness/swelling Skin: No rashes, No breakdown, No significant lesion Neuro: Normal speech, Strength at 5/5 X4 ext, Normal tone, Sensation intact, Cranial nerves 3-12 NL, Reflexes 2+, Other (Patient currently walking with a lot of difficulty due to severe right-sided lower back pain.) Psych/Mental Status: Mental status NL, Mood NL laboratory and microbiology Laboratory Tests 09/07/24 04:57 Test 09/07/24 04:57 Range/Units Serum Glucose 83 74-106 mg/dL Problem List/Assessment/Plan Problem List/Assessment/Plan #Acute right-sided lower back pain due to radiculopathy and musculoskeletal #Severe multilevel disc degenerative disc disease, L1-L3 retrolisthesis, facet hypertrophy, L6 transitional vertebra #Multilevel neural foraminal stenosis most pronounced at L2-3, L5-S1. #Rheumatoid arthritis -straight leg raise test negative -chest x-ray grossly unremarkable regarding lung parenchyma, there is a moderate hiatal hernia -CT lumbar done Ativan PO given Continue cyclobenzaprine 10mg daily Start ketoroplac CRP mildly elevated #Hypothyroidism -TSH and free T4: normal -Resume levothyroxine 50 mcg daily #Primary hypertension -Continue lisinopril 5 mg daily -Monitor BP #Prediabetes - HbA1c 5.7 -Monitor BG #Dyslipidemia -Ordered lipid panel -Start atorvastatin 20mg daily #Hx of osteopenia/osteoporosis -Alendronate 70mg 1 tab weekly #Abdominal aortic aneurysm: 4.2 x 3.8 cm infrarenal, 3.5 x 3.0 cm proximal fu outpatient Goals of care discussed with the patient at bedside for >35min, FULL CODE Plan discussed with Dr. Shipman Plan discussed with: Patient, Other (rn) My Orders My Orders Orders - SELENA MENSAH Procedure Category Date Status Time Ketorolac Injection PHA 09/07/24 In Process (Toradol Injection) 12:00 SELENA MENSAH RESIDENT Sep 07, 2024 17:51
[2024-09-08 01:00] VITALS: BP 109/57; PULSE 62; RESP 18; TEMP 97.9; O2SAT 91
[2024-09-08 05:00] VITALS: BP 141/75; PULSE 62; RESP 20; TEMP 97.6; O2SAT 96
[2024-09-08 09:18] VITALS: BP 115/62; PULSE 67; RESP 16; TEMP 97.3; O2SAT 93
[2024-09-08] MEDS ORDERED: ACET-1079 PO (10:49)
[2024-09-08] MEDS ORDERED: IBU600T PO (10:49)
[2024-09-08 13:00] VITALS: BP 135/86; PULSE 66; RESP 16; TEMP 98.3; O2SAT 94
--- NOTE | 2024-09-08 13:05 | DVHDSRES ---
Discharge Summary Date of Admission Resident Creating Document: SELENA MENSAH RESIDENT Sep 05, 2024 at 20:31 Date of Discharge: Sep 08, 2024 Admitting Diagnosis #Severe multilevel disc degenerative disc disease, L1-L3 retrolisthesis, facet hypertrophy, L6 transitional vertebra Labs/Diagnostic Data: Laboratory Results Test 09/07/24 04:57 09/06/24 21:37 09/06/24 06:33 09/06/24 03:00 White Blood Count 4.2 10^3/uL (4.4-10.8) Red Blood Count 4.11 10^6/uL (4.5-5.90) Hemoglobin 12.9 g/dL (13.5-17.5) Hematocrit 38.5 % (41.0-53.0) Mean Corpuscular Volume 93.7 fL (80.0-100.0) Mean Corpuscular Hemoglobin 31.3 pg (28.0-32.0) Mean Corpuscular Hemoglobin Concent 33.4 g/dL (32.0-36.0) Red Cell Distribution Width 17.3 % (11.8-14.3) Platelet Count 180 10^3/uL (140-450) Mean Platelet Volume 7.2 fL (6.9-10.8) Neutrophils (%) (Auto) 60.1 % (37.0-80.0) Lymphocytes (%) (Auto) 20.9 % (10.0-50.0) Monocytes (%) (Auto) 14.7 % (0.0-12.0) Eosinophils (%) (Auto) 3.3 % (0.0-7.0) Basophils (%) (Auto) 1.0 % (0.0-2.0) Neutrophils # (Auto) 2.5 10 ^3/uL (1.6-8.6) Lymphocytes # (Auto) 0.9 10 ^3/uL (0.4-5.4) Monocytes # (Auto) 0.6 10 ^3/uL (0-1.3) Eosinophils # (Auto) 0.1 10 ^3/uL (0-0.8) Basophils # (Auto) 0 10 ^3/uL (0-0.2) Nucleated Red Blood Cells 0.1 % Sodium Level 136 mmol/L (136-145) Potassium Level 4.3 mmol/L (3.5-5.1) Chloride Level 103 mmol/L (98-107) Carbon Dioxide Level 28 mmol/L (20-31) Anion Gap 5 (5-15) Blood Urea Nitrogen 18 mg/dL (9-23) Creatinine 0.83 mg/dL (0.700-1.30) Glomerular Filtration Rate Calc 86 mL/min (>90) BUN/Creatinine Ratio 21.7 (10.0-20.0) Serum Glucose 83 mg/dL (74-106) Calcium Level 8.3 mg/dL (8.7-10.4) Urine Color Yellow (Yellow) Urine Clarity Clear (Clear) Urine pH 5.5 (5.0-9.0) Urine Specific [place] 1.016 (1.001-1.035) Urine Protein Negative (Negative) Urine Ketones Negative (Negative) Urine Blood Negative /uL (Negative) Urine Nitrite Negative (Negative) Urine Bilirubin Negative (Negative) Urine Urobilinogen Normal mg/dL (Negative) Urine Leukocyte Esterase Negative /uL (Negative) Urine RBC <1 /hpf (0 - 3) Urine Microscopic WBC 1 /HPF (0-3) Urine Squamous Epithelial Cells None seen /hpf (<5) Urine Bacteria None seen /hpf (None Seen) Urine Hyaline Casts Few /lpf (0 - 2) Urine Glucose Normal mg/dL (Normal) Urine Opiates Screen Neg (NEGATIVE) Urine Fentanyl Screen Neg (NEGATIVE) Urine Barbiturates Screen Neg (NEGATIVE) Urine Phencyclidine Screen Neg (NEGATIVE) Urine Amphetamines Screen Neg (NEGATIVE) Urine Benzodiazepines Screen Neg (NEGATIVE) Urine Cocaine Screen Neg (NEGATIVE) Urine Cannabinoids Screen Pos (NEGATIVE) Total Bilirubin 0.5 mg/dL (0.2-1.0) Aspartate Amino Transferase (AST) 20 U/L (13-40) Alanine Aminotransferase (ALT) 17 U/L (7-40) Alkaline Phosphatase 59 U/L (46-116) C-Reactive Protein High Sensitivity 1.29 mg/dL (<1.0) Total Protein 6.7 g/dL (5.7-8.2) Albumin 4.3 g/dL (3.2-4.8) Influenza Type A Antigen Negative (Negative) Influenza Type B Antigen Negative (Negative) SARS-CoV-2 Antigen (Rapid) Negative (NEGATIVE) Test 09/05/24 21:22 09/05/24 18:26 09/05/24 14:47 Erythrocyte Sedimentation Rate 9 mm/hr (0-20) Free Thyroxine (T4) Calculated 1.15 ng/dL (0.89-1.76) Troponin I High Sensitivity 10 ng/L (</=54) Thyroid Stimulating Hormone (TSH) 2.13 uIU/mL (0.55-4.78) Hemoglobin A1c 5.7 % A1C (<5.7) Triglycerides Level 108 mg/dL (< 150) Cholesterol Level 185 mg/dL (< 200) LDL Cholesterol 118 mg/dL (< 100) HDL Cholesterol 55 mg/dL (40-59) Other Laboratory Tests 09/07/24 04:57 Brief Hx & Hospital Course: 83-year-old male with history of rheumatoid arthritis, hypertension, dyslipidemia, prediabetes, hypothyroidism, and abdominal aortic aneurysm who presented with severe right-sided lower back pain radiating to the right upper quadrant and chest, worsening over one week. Hospital Course: The patient was admitted due to progressive right lower back pain described as sharp and stabbing, rated 8/10, worsened by standing and sitting. He denied fever, chills, chest pain, or dyspnea. On admission, physical exam revealed limited mobility due to pain, requiring use of a wheelchair. Laboratory workup including CBC, troponins, BNP, and CRP was grossly unremarkable except for mildly elevated CRP. Chest x-ray showed moderate hiatal hernia. CT lumbar spine on 09/06/2024 revealed severe multilevel degenerative disc disease, L1L3 retrolisthesis, facet hypertrophy, L6 transitional vertebra, and multilevel foraminal stenosis (most pronounced at L23 and L5S1). Notably, an abdominal aortic aneurysm (4.2 x 3.8 cm infrarenal, 3.5 x 3.0 cm proximal) was also reported. Initial pain management included lorazepam, flexeril, ibuprofen, and [place]. Due to inadequate response, ketorolac was initiated, along with cyclobenzaprine and Ativan. The patient remained hemodynamically stable without signs of infection. Discharge Condition: Stable. Pain improved but still present. Tolerating oral medications and ambulating short distances with assistance. PT HH was arranged Case discussed with Dr Shipman Operations or Procedures CT LS SPINE WO CONTRAST Indication: R/O Herniated disk or vertebral fracture EXAM DATE: 09/05/2024 08:44 PM COMPARISON: None TECHNIQUE: CT of the lumbar spine without intravenous contrast. RADIATION DOSE: CTDIvol: 22.53 mGy, DLP: 682.16 mGy*cm FINDINGS: The lumbar vertebral body heights are maintained. Severe multilevel disc space narrowing. 2 mm retrolisthesis of L2 upon L3.2 mm retrolisthesis of L1 upon L2. Moderate to severe lumbar facet hypertrophic changes. Transitional L6 vertebral body. Old sacral fracture deformity at approximately S3. Lumbar dextrocurvature. Moderate to severe neural foraminal stenosis L5-S1. Moderate to severe neural foraminal stenosis L2-3. Moderate neural foraminal stenosis of the remaining lumbar levels. Moderate bilateral sacroiliac degenerative joint disease. Aneurysmal dilatation of the infrarenal abdominal aorta to 4.2 3.8 cm. Aneurysmal dilatation of the proximal abdominal aorta to 3.5 x 3.0 cm. IMPRESSION: 1. Severe multilevel disc degenerative disc disease, L1-L3 retrolisthesis, facet hypertrophy, L6 transitional vertebra 2. Multilevel neural foraminal stenosis most pronounced at L2-3, L5-S1. 3. Abdominal aortic aneurysm ( 4.2 x 3.8 cm infrarenal, 3.5 x 3.0 cm proximal ) Condition at Discharge: Stable Final Diagnosis/Problems List #Acute right-sided lower back pain due to radiculopathy and musculoskeletal #Severe multilevel disc degenerative disc disease, L1-L3 retrolisthesis, facet hypertrophy, L6 transitional vertebra #Multilevel neural foraminal stenosis most pronounced at L2-3, L5-S1. #Rheumatoid arthritis #Hypothyroidism #Primary hypertension #Prediabetes #Dyslipidemia #Hx of osteopenia/osteoporosis #Abdominal aortic aneurysm: 4.2 x 3.8 cm infrarenal, 3.5 x 3.0 cm proximal Discharge Disposition: Home with Health Services Discharge Instruct/Medications Diet: Consistent carbohydrate, Cardiac 2g Na,low cholest Activity: Light activity Follow Up/Referral: pcp in1 week Medications: see prescription Discharge Statement: "Patient was advised to return to the ER or call 911 if any headaches, dizziness, shortness of breath, chest pain, abdominal pain, bleeding, fevers, or worsening of medical condition. Patient was counseled about treatment plan, medications, possible side effects, patientverbalized understanding. All questions were answered to the best of my ability. This discharge took greater then 30 minutes in planning, reviewing documentation, counseling the patient, and discussing with other team members." ASSESSMENT ASSESSMENT Assessment acute intractable lumbar pain SELENA MENSAH RESIDENT Sep 08, 2024 13:05
[2024-09-08 14:38] VITALS: BP 135/86; PULSE 66; RESP 16; TEMP 98.3; O2SAT 94
[2024-09-08 17:00] VITALS: BP 110/65; PULSE 67; RESP 16; TEMP 98.4; O2SAT 95
== END 2024-09-08 19:25 | disposition home health service (06) | DRG 552 ==
LOC: EDBD 12:44 → ER 12:56 → OVERFLOW 20:31 → CENTRAL 09-06 04:21
PROVIDERS: ADMIT Student in an Organized Health Care Education/Training Program; ATTEND Student in an Organized Health Care Education/Training Program
DX: M48.061 Spinal stenosis, lumbar region without neurogenic claudication (principal); M51.16 Intervertebral disc disorders with radiculopathy, lumbar region; I10 Essential (primary) hypertension; E78.5 Hyperlipidemia, unspecified; E03.9 Hypothyroidism, unspecified; K44.9 Diaphragmatic hernia without obstruction or gangrene; M81.0 Age-related osteoporosis without current pathological fracture; M85.88 Other specified disorders of bone density and structure, other site; M06.9 Rheumatoid arthritis, unspecified; I71.40 Abdominal aortic aneurysm, without rupture, unspecified; Z79.1 Long term (current) use of non-steroidal anti-inflammatories (NSAID); Z79.899 Other long term (current) drug therapy
CPT/HCPCS: 36415; 71046; 72131; 80048; 80053; 80061; 80307; 81001; 83036; 84439; 84443; 84484; 85025; 85652; 86141; 87426; 87804; 97163; 99291; G0378; J1885